=== PATIENT | male | born 1985 | race African-American/Black ===

== ENCOUNTER 2021-03-17 11:13 | Inpatient (IN) | payer OTHER ==
[~2021-03-17] VITALS: Ht 175.3 cm; Wt 81.8 kg
[2021-03-17] MEDS ORDERED: MELA3TAB30 PO (11:31)
[2021-03-17] MEDS ORDERED: PROP60CA PO (11:31)
[2021-03-17] MEDS ORDERED: BUPR-69 PO (11:31)
[2021-03-17 12:53] LABS: HEMATOCRIT 39.6 % (42.0-52.0); HEMOGLOBIN 14.4 g/dl (13.5-17.5); MEAN CORPUSCULAR HEMOGLOBIN 32.7 pg (27.0-33.0); MEAN CORPUSCULAR HGB CONC 36.4 g/dl (32.0-36.5); MEAN CORPUSCULAR VOLUME 89.8 fl (80.0-96.0); PLATELET COUNT, AUTOMATED 293 10^3/uL (150-450); RED BLOOD COUNT 4.41 10^6/uL (4.30-6.10); WHITE BLOOD COUNT 3.8 10^3/uL (4.0-10.0)
[2021-03-17 13:35] LABS: ACETAMINOPHEN LEVEL < 2.0 UG/ML (10.0-30.0); ALBUMIN 4.1 GM/DL (3.2-5.2); ALT/SGPT 41 U/L (12-78); BILIRUBIN,DIRECT 0.1 MG/DL (0.0-0.2); BILIRUBIN,TOTAL 0.6 MG/DL (0.2-1.0); BLOOD UREA NITROGEN 11 MG/DL (7-18); CALCIUM LEVEL 9.4 MG/DL (8.5-10.1); CARBON DIOXIDE LEVEL 28 MEQ/L (21-32); CHLORIDE LEVEL 105 MEQ/L (98-107); CREATININE FOR GFR 0.95 MG/DL (0.70-1.30); ETHYL ALCOHOL (ETHANOL) < 0.003 % (0.000-0.010); GLOMERULAR FILTRATION RATE > 60.0 (>60); GLUCOSE, FASTING 84 MG/DL (70-100); SALICYLATE LEVEL < 1.7 MG/DL (5.0-30.0); SODIUM LEVEL 139 MEQ/L (136-145); THYROID STIMULATING HORMONE 0.845 uIU/ML (0.358-3.740); TOTAL PROTEIN 7.6 GM/DL (6.4-8.2)
[2021-03-17 14:27] LABS: AMPHETAMINES LEVEL URINE NEGATIVE (NEGATIVE); BARBITURATES URINE NEGATIVE (NEGATIVE); BENZODIAZEPINES URINE NEGATIVE (NEGATIVE); CANNABINOIDS URINE NEGATIVE (NEGATIVE); COCAINE METABOLITE URINE NEGATIVE (NEGATIVE); METHADONE URINE NEGATIVE (NEGATIVE); OPIATES URINE NEGATIVE (NEGATIVE); PHENCYCLIDINE URINE NEGATIVE (NEGATIVE)
[2021-03-17 15:33] LABS: RSV AMPLIFICATION NEGATIVE (NEGATIVE)
[2021-03-17] MEDS ORDERED: PROP40TA62 PO (15:59)
[2021-03-17] MEDS ORDERED: BUPR100T3 PO (15:59)
[2021-03-17] MEDS ORDERED: HOME MED LIST COMPLETE! XX SCH (16:00)
[2021-03-17] MEDS ORDERED: MAALOX 30 ML SUSP *UDC PO PRN (18:30)
[2021-03-17] MEDS ORDERED: MOM 30ML SUSPENSION UDC PO PRN (18:30)
[2021-03-17] MEDS ORDERED: NICOTINE 21MG/24HR 1 EA TRANSDERMAL TD PRN (18:30)
[2021-03-17] MEDS ORDERED: OLANZapine ORAL DISINTEGRATING TAB 5MG PO PRN (18:30)
[2021-03-17] MEDS ORDERED: traZODone 50 MG TAB PO PRN (18:30)
--- OUTSIDE RECORDS SUMMARY | 2021-03-17 18:49 | CCD ---
Author Author [facility] Address Unknown Phone Unavailable Support Name Relationship Address Phone [facility] Next Of Kin [address] [place] [address] Unavailable ZEYAD THAKUR Next Of Kin [id number] [place] [address] Re-disclosure Warning The records that you are about to access may contain information from federally-assisted alcohol or drug abuse programs. If such information is present, then the following federally mandated warning applies: This information has been disclosed to you from records protected by federal confidentiality rules (42 CFR part 2). The federal rules prohibit you from making any further disclosure of this information unless further disclosure is expressly permitted by the written consent of the person to whom it pertains or as otherwise permitted by 42 CFR part 2. A general authorization for the release of medical or other information is NOT sufficient for this purpose. The Federal rules restrict any use of the information to criminally investigate or prosecute any alcohol or drug abuse patient.The records that you are about to access may contain highly sensitive health information, the redisclosure of which is protected by Article 27-F of the [facility] Public Health law. If you continue you may have access to information: Regarding HIV / AIDS; Provided by facilities licensed or operated by the [facility] Office of Mental Health; or Provided by the [facility] Office for People With Developmental Disabilities. If such information is present, then the following [facility] mandated warning applies: This information has been disclosed to you from confidential records which are protected by state law. State law prohibits you from making any further disclosure of this information without the specific written consent of the person to whom it pertains, or as otherwise permitted by law. Any unauthorized further disclosure in violation of state law may result in a fine or mcfp sentence or both. A general authorization for the release of medical or other information is NOT sufficient authorization for further disc losure. Medications No Information Insurance Providers Payer name Policy type / Coverage type Policy ID Covered constitution party ID Covered constitution party's relationship to castillo Policy Castillo Plan Information [facility] [id number] Problems, Conditions, and Diagnoses No Information Surgeries/Procedures No Information Results No Information Social History No Information
[2021-03-18] MEDS ORDERED: METAL LOCK LOOP XX ONE (02:05)
[2021-03-18 03:01] VITALS: BP 132/87
--- NOTE | 2021-03-18 13:34 | MHHPEPDOC ---
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 PT is from [facility] and he enlisted as it was his life long dream. PT has supportive friends and family in [facility] but not here at [facility] except for his of 13 years. They share 4 children that range in ages from 6 months to 10 years. 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 PT feels that his emotional state changed after going to [facility] and he now suffers from poor sleep, anger issues and depression. He was stationed in [place] 2019 and he found the experience "ok" but that is when he realized something was wrong as he was having nightmares and only sleeping 2-3 hours. When PT came to [facility] in February he enrolled at the [facility]. Today PT was a walk in as over the weekend he was struggling with depression as two of his friends in [facility] have in a two week period- one from an ulcer and one from lung cancer. PT began to worry about his own health as a result but then decided that life is not worth living so it wouldnt bother him if his health became terminal. EMS was called to bring PT to ED. PT denies SI prior to last Wednesday 03/14 when [place] and thought "What if I jump in". 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 He has not acted on the thoughts due to realizing the pain it would cause his family. PT states he has had AH since return from [place] but typically the AH are not clear and he disregarded them until recently. PT does not wish to be admitted but is tolerant with the process. Patient is a 35 -year-old , , undomiciled male, who presents with his first psychiatric admission after reporting suicidal thoughts and worsening ah since 03/14/21. Patient states that prior to 03/14/21, he has never had any suicidal thoughts. However, he states he has heard voices about 2-3 times per week beginning in 2019 after his deployment to [place]. He states that he was unsure if they were auditory hallucinations or just his own thoughts. On 03/14/21, patient reported he was changed from cymbalta to bupropion and since then, he has had command ah that suggest patient do risky behaviors, such as jump off a helicopter when he was at work or drive into the other yenifer of traffic, along with passive SI, denies active si, has not been thinking of a plan and has no intent of acting on suicidal thoughts. Patient stated he went into [facility] yesterday and told his provider how he was feeling, who suggested that patient come to to the emergency room for an evaluation. Since coming to the emergency room, Hossein states he hasn't received the bupropion and denies si/hi/ah/vh, states he feels "normal." Psychiatric Review of Systems Depression (2 or more weeks): depressed mood, anhedonia, feelings of excess/guilt, feelings of worthlesness, decreased energy, difficulty concentrating, suicidal thoughts (describes as passive) Luciana (4 or more days of): denies Psychosis: auditory hallucination, visual hallucination ("shadows"), paranoia PTSD: history of trauma, nightmares and flashbacks, intrusive memories, hypervigilance, avoidance of triggers, mood fluctuations Anxiety: situational anxiety, stressor related anxiety Anxiety/ 6 months or more of: restlessness, keyed up, easily fatigued, difficulty concentrating, muscle tension Past Psychiatric History Previous Psychiatric Diagnosis: "they never told me my diagnosis Previous Psychiatric Admissions: denies Suicide Attempts: denies. Psychiatric Follow[facility] Psychiatric medications: hx zoloft - experienced numbness in jaw cymbalta- experienced dizziness bupropion - current Past Medical History Medical Problems denies sleep apnea Head Injury: Yes Seizures: No Hospitalizations: No Surgeries: Yes (hemmorrhoids) Family Medical/Psychiatric HX Medical Problems denies Psychiatric Disorders: No Addiction: No Suicide Attemps/Completions: No Addiction History alcohol (occassionally ) Social History Childhood: Patient reported he grew up [place] with 3 brothers, 2 sisters with mother and father. He states he came to [place] in [place] with his immediate family, then decided to join the Abuse/Trauma: 1 deployment to [facility] (several attacks on post) Current Living Situation: currently lives with and children on post (4 kids) Education: Patient stated he graduated high school, graduated in business management Employment: [place] [employer] - enjoys job Social Support: patient's is supportive, has a good relationship. Legal: denies Marital: with 4 kids Mental Status Examination General Appearance: well groomed, appears stated age Build: average Demeanor: average Eye Contact: average Activity: average Behavior: cooperative Speech: clear, reg/rate,rhythm,volume Mood: depressed Affect: appropriate, congruent Thought Process: logical/linear Thought Content (Delusions): none reported, other (denies si/hi) Thought Content (Other): none reported Thought Content (Aggressive): none reported Perception (Hallucinations): auditory, visual (shadows at work) Perception (Other): none reported Cognition (Impairment of): none reported Cognition(Intelligence Est.): average Oriented: Awake, Alert, Oriented times three Insight: fair Judgment: Fair Psychosis: Psychotic Perceptions (reports +ah) Diagnoses PTSD major depressive disorder, moderate-severe, recurrent R/o MDD with psychotic features adjustment disorder A-FIB/CHADSVASC A-FIB History Current/History of A-Fib/PAF?: No Current PO Anticoag Therapy: No Assessment Hossein was receptive to meeting for the interview. He did test positive for Covid 19 so was placed on isolation precautions per infection control policy. In today's interview, patient states that he has felt depressed, beginning in 2019 after he returned from his deployment, where he witnessed a lot of trauma from "attacks on our base." He stated he thought he had +ah starting in 2019 but is unsure if it was ah or his own thoughts. He states the suspected ah would happen about 2-3 times a week. He states he has been on zoloft before but that he had numbness in his jaw from it, then was changed to cymbalta, which he tolerated for about 4 months but then began having dizziness from it. He reported on 03/14 his provider changed him to bupropion and since then he has had increasing ah, command that suggest he engage in risky behaviors to harm himself. Patient states since stopping the bupropion, he has not experienced an y ah, denies si/hi and cfs on the unit. He is agreeable to changing medications . Initial Treatment Plan 1. Patient was admitted on a [9.39] status. 2. Complete history was obtained. 3. With patients permission, family will be contacted and database will be expanded. 4. Patients medication regimen will be reviewed and changed accordingly. 5. Patient will be provided with protected environment. 6. Patient will be treated with individual, group, and milieu therapies. 7. Patient will receive supportive psych-education. 8. Discharge planning will commence immediately. 9. Outpatient follow-up treatment will be strongly recommended. 10. The initial treatment plan will focus initially on: * Depression. * Risk for suicide. ESTIMATED LENGTH OF STAY: 3-5 DAYS. TIME SPENT COUNSELING AND COORDINATING INITIAL CARE: [address] of head due to abrupt onset of command ah d/c bupropion start prozac 20 mg po daily continue home medications N/A-No Antipsychotics Vital Signs Vital Signs Date Time Temp Pulse Resp B/P (MAP) Pulse Ox O2 Delivery O2 Flow Rate FiO2 03/18/21 03:01 97.2 55 16 132/87 (102) 99 Room Air Laboratory Data 24H Labs Laboratory Tests 2 03/17/21 14:32: Coronavirus (COVID-19)(PCR) POSITIVEA, Influenza Type A (RT-PCR) NEGATIVE, Influenza Type B (RT-PCR) NEGATIVE, Respiratory Syncytial Virus (PCR) NEGATIVE Medications Scheduled Bupropion Hcl (Bupropion HCl Sr) 100 Mg Tab.sr.12h, 100 MG PO BID, (Reported) Melatonin (Melatonin) 3 Mg Tablet, 3 MG PO QHS, (Reported) Propranolol HCl (Propranolol HCl) 40 Mg Tablet, 40 MG PO QHS, (Reported) Allergies Coded Allergies: tuberculin, purified protein deriva (Verified Allergy, Unknown, 03/17/21) "always tests positive" ARJUN GILBERT, [facility] Mar 18, 2021 13:34
--- NOTE | 2021-03-18 15:14 | CR.PDOC ---
General Date of Consultation: Mar 18, 2021 Attending Physician: Yovana Segura MD Consultation REASON FOR CONSULTATION/CHIEF COMPLAINT: Medical H&P HISTORY OF PRESENT ILLNESS: Patient is a 35-year-old male with past medical history of anxiety, depression, questionable PTSD who presented to [facility] emergency room with a complaint of suicidal ideation, hearing voices. The patient states he has been hearing voices and has been battling with depression for over a year, follows with outpatient behavioral health on . He has been tried on several medications, most recent medication change was this past where he was switched to bupropion. He states he felt as though his auditory hallucinations increased, they were encouraging him to participate in "risky behavior". The patient states he has several stressors as outpatient including his workplace. He also admits to increased hopelessness, helplessness, decreased pleasure in things that normally bring him nathan, suicidal ideations without plan. He denies visual hallucinations or intent to harm anyone else. The patient was brought to the hospital for further evaluation on 03/17/2021. The patient tested positive for COVID-19. He denied chest pains, shortness of breath, fevers, chills, nausea, abdominal pain, loss of taste or smell, diarrhea. Medicine was consulted to evaluate. REVIEW OF SYSTEMS: CONSTITUTIONAL: Denies lack of energy, unexplained weight gain or weight loss, loss of appetite, fever, night sweats EYES: Denies eye drainage, eye pain, visual changes, dry/irritated eye EARS, NOSE, MOUTH, THROAT: Denies difficulty hearing, ringing in ears, mouth sores, loose teeth, sore throat, facial numbness or pain NECK: Denies swollen glands CARDIOVASCULAR: Denies irregular heartbeat, racing heart, chest pains, swelling of feet or legs, pain in legs with walking RESPIRATORY: Denies shortness of breath, night sweats, wheezing, sputum production, oxygen at home, coughing up blood, cough lasting > 1 month GASTROINTESTINAL: Denies abdominal pain, constipation, bloody stool, diarrhea, heartburn, nausea, vomiting GENITOURINARY: Denies painful urination, bloody urine, frequent urination, urgency, leaking urine, impotence MUSCULOSKELETAL: Denies joint pain, muscle pain, leg swelling INTEGUMENTARY: Denies rash, itching, new skin lesion, change in existing skin lesion, hair loss or increase, breast changes. NEUROLOGICAL: Denies headaches, dizziness, difficulty walking, numbness or tingling PAST MEDICAL HISTORY: Anxiety Depression Questionable PTSD PAST SURGICAL HISTORY: Hemorrhoid surgery FAMILY HISTORY: No significant family history SOCIAL HISTORY: Denies smoking, alcohol or drug use. Lives locally with his . He is active duty ALLERGIES: Please see below. HOME MEDICATIONS: Please see below. PHYSICAL EXAMINATION: VS: Stable, see below CONSTITUTIONAL: No acute distress, resting comfortably, AAO x 3 EYES: PERRLA, EOM intact HENT, MOUTH: Normocephalic, atraumatic, moist mucous membranes, NECK: SUPPLE, no JVD, no lymphadenopathy, no carotid bruit CV: Regular rate and rhythm, S1S2 normal, no murmurs/rubs/gallops RESPIRATORY: Clear to auscultation bilaterally, no rales/rhonchi/wheezes GI: BS positive in 4 quadrants, soft, nontender, nondistended, no rebound or guarding, no organomegaly : Deferred MUSCULOSKELETAL: Normal ROM. No cyanosis, clubbing, swelling, joint deformity, extremity edema INTEGUMENTARY: Intact, no rashes, no lesions, no erythema NEUROLOGIC: Cranial Nerves II-XII are intact, no focal deficits PSYCHIATRIC: Mood and affect are normal LABORATORY DATA: Please see below IMAGING: None ASSESSMENT: 35-year-old male admitted for unspecified depressive disorder, suicidal ideation. PLAN: Unspecified depressive disorder, suicidal ideation -Recent medication change outpatient -Plan per psychiatry team Anxiety/depression/questionable PTSD -Plan per psychiatry team COVID-19 infection -Denies all symptoms above -Saturating well on room air -Continue with precautions, monitor for change DISPOSITION: Thank you kindly for this consult. At this time I will sign off. If we are needed again please do not hesitate to reconsult. Vital Signs/I&O Vital Signs Date Time Temp Pulse Resp B/P (MAP) Pulse Ox O2 Delivery O2 Flow Rate FiO2 03/18/21 03:01 97.2 55 16 132/87 (102) 99 Room Air Allergies Coded Allergies: tuberculin, purified protein deriva (Verified Allergy, Unknown, 03/17/21) "always tests positive" Home Medications Scheduled Bupropion Hcl (Bupropion HCl Sr) 100 Mg Tab.sr.12h, 100 MG PO BID, (Reported) Melatonin (Melatonin) 3 Mg Tablet, 3 MG PO QHS, (Reported) Propranolol HCl (Propranolol HCl) 40 Mg Tablet, 40 MG PO QHS, (Reported) Yovana Segura MD Mar 18, 2021 15:14
[2021-03-18] MEDS: FLUoxetine 20 MG CAP PO SCH (16:36)
[2021-03-18 20:37] VITALS: BP 136/86
[2021-03-18] MEDS: PROPRANOLOL 20 MG TAB PO SCH (20:39)
[2021-03-18] MEDS: ACETAMINOPHEN TAB 650MG DOSE (2X325MG) PO PRN (20:40)
[2021-03-18] MEDS ORDERED: risperiDONE 0.5 MG TAB PO SCH (21:00)
--- NOTE | 2021-03-18 21:29 | REPVR ---
PROCEDURE INFORMATION: Exam: CT Head without Contrast Exam date and time: 03/18/21 (8:48pm) Age: 35 years old Clinical indication: Headache TECHNIQUE: Imaging protocol: Computed tomography of the head without contrast Radiation optimization: All CT scans at this facility use at least one of these dose optimization techniques: automated exposure control; mA and/or kV adjustment per patient size (includes targeted exams where dose is matched to clinical indication); or iterative reconstruction. COMPARISON: No relevant prior studies available FINDINGS: Brain: Unremarkable. No acute hemorrhage. Unremarkable white matter. No mass effect. Cerebral ventricles: No ventriculomegaly. Paranasal sinuses: Visualized sinuses are unremarkable. No air-fluid levels. Mastoid air cells: Visualized mastoid air cells are well aerated. Bones/joints: Unremarkable. No acute fracture. Soft tissues: Unremarkable. IMPRESSION: No acute intracranial pathology. Electronically signed by: Lana Goodman On 03/18/2021 21:28:50 PM
[2021-03-19 06:22] VITALS: BP 123/65
[2021-03-19] MEDS: FLUoxetine 20 MG CAP PO SCH (09:17)
[2021-03-19 16:53] VITALS: BP 146/63
[2021-03-19 19:51] VITALS: BP 127/78
[2021-03-19] MEDS: PROPRANOLOL 20 MG TAB PO SCH (20:00)
[2021-03-19] MEDS: OLANZapine 5 MG TAB PO SCH (20:00)
[2021-03-19] MEDS ORDERED: OLANZapine 5 MG TAB PO SCH (21:00)
[2021-03-19] MEDS ORDERED: QUEtiapine FUMARATE 25 MG TAB PO SCH (21:00)
--- NOTE | 2021-03-20 00:52 | ECGEPIP ---
[facility] Test Date: 2021-03-19 Pat Name: AWILDA HAMM Department: Room: [place] [address] Gender: Male Codifier: JULIA : [id number] Requested By: ARJUN Montoya PMHNP Order Number: [id number] Reading MD: Hammad Brown Measurements Intervals [place] Rate: 56 P: 7 AK: 196 QRS: 31 QRSD: 98 T: -2 QT: 372 QTc: 358 Interpretive Statements Sinus bradycardia with sinus arrhythmia No prior tracing in the system Electronically Signed on 03-20-2021 0:51:44 EST by Hammad Brown
[2021-03-20] MEDS: ESCITALOPRAM OXALATE 10 MG TAB (LEXAPRO) PO SCH (09:05)
--- NOTE | 2021-03-20 10:10 | MHIPNPDOC ---
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 PT is from [facility] and he enlisted as it was his life long dream. PT has supportive friends and family in [facility] but not here at [facility] except for his of 13 years. They share 4 children that range in ages from 6 months to 10 years. 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 PT feels that his emotional state changed after going to [facility] and he now suffers from poor sleep, anger issues and depression. He was stationed in [place] 2019 and he found the experience "ok" but that is when he realized something was wrong as he was having nightmares and only sleeping 2-3 hours. When PT came to [facility] in February he enrolled at the [facility]. Today PT was a walk in as over the weekend he was struggling with depression as two of his friends in [facility] have in a two week period-one from an ulcer and one from lung cancer. PT began to worry about his own health as a result but then decided that life is not worth living so it wouldnt bother him if his health became terminal. EMS was called to bring PT to ED. PT denies SI prior to last Wednesday 03/14 when he sat by the river and thought "What if I jump in". 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 He has not acted on the thoughts due to realizing the pain it would cause his family. PT states he has had AH since return from [place] but typically the AH are not clear and he disregarded them until recently. PT does not wish to be admitted but is tolerant with the process. Patient is a 35 -year-old , , undomiciled male, who presents with his first psychiatric admission after reporting suicidal thoughts and worsening ah since 03/14/21. Patient states that prior to 03/14/21, he has never had any suicidal thoughts. However, he states he has heard voices about 2-3 times per week beginning in 2019 after his deployment to [place]. He states that he was unsure if they were auditory hallucinations or just his own thoughts. On 03/14/21, patient reported he was changed from cymbalta to bupropion and since then, he has had command ah that suggest patient do risky behaviors, such as jump off a helicopter when he was at work or drive into the other yenifer of traffic, along with passive SI, denies active si, has not been thinking of a plan and has no intent of acting on suicidal thoughts. Patient stated he went into [facility] yesterday and told his provider how he was feeling, who suggested that patient come to to the emergency room for an evaluation. Since coming to the emergency room, Hossein states he hasn't received the bupropion and denies si/hi/ah/vh, states he feels "normal." VITAL SIGNS: See below. NEW TEST RESULTS: CT of head - neagative CURRENT MEDICATIONS: See below. Mental Status Examination General Appearance: well groomed, appears stated age Build: average Demeanor: average Eye Contact: average Activity: average Behavior: cooperative Speech: clear, reg/rate,rhythm,volume Mood: depressed Affect: appropriate, congruent Thought Process: logical/linear Thought Content (Delusions): none reported, other (denies si/hi) Thought Content (Other): none reported Thought Content (Aggressive): none reported Perception (Hallucinations): auditory, visual (shadows at work) Perception (Other): none reported Cognition (Impairment of): none reported Cognition(Intelligence Est.): average Oriented: Awake, Alert, Oriented times three Insight: fair Judgment: Fair Psychosis: Psychotic Perceptions (reports +ah) DIAGNOSES: PTSD major depressive disorder, moderate-severe, recurrent R/o MDD with psychotic features adjustment disorder ASSESSMENT: In today's session Hossein states he is doing "very good." he denies si, states that last time he had suicidal thoughts was last Wednesday. He does report "a little anxiety today." Hossein reports that this morning he heard a sound of someone running to the bathroom that called his name. He states that when he went to the bathroom and turned on the lights, no one was there. He stated that the ah comes unexpectedly that he feels scared and like he is "being haunted by little ghosts." He reports that least week 2 friends and since then, he feels like there is no point in making future plans because he feels that if his friends , he is going to too. He states he has no energy and that he comes home from work on Wednesday and goes to his bedroom, where he lays in bed all weekend until Wednesday when he has to go back to work, does not even come out of room for meals as he brings snacks to the bedroom. He also states he feels guilty, makes plans with his children on the weekends when he is off then when the day comes the kids ask if they are still going to do the things he told them and he changes his mind, states he doesn't fee like going. Hossein is receptive to starting an antipsychotic for the ah. He was educated on risks benefits an potential side effects. MANAGEMENT PLAN: continue all medications start olanzapine 5 mg po qhs TIME SPENT: 30 minutes. Vital Signs Vital Signs Date Time Temp Pulse Resp B/P (MAP) Pulse Ox O2 Delivery O2 Flow Rate FiO2 03/19/21 06:22 98.6 68 16 123/65 (84) 100 Room Air Current Medications Current Medications Medications (Trade) Dose Ordered Sig/Beatriz Route PRN Reason Start Time Stop Time Status Last Admin Dose Admin Acetaminophen (Tylenol Tab) 650 mg Q6HP PRN PO HEADACHE or MILD DISCOMFORT 03/17/21 18:30 03/18/21 20:40 Al Hydrox/Mg Hydrox/Simethicone (Mylanta) 30 ml Q4HP PRN PO HEARTBURN/INDIGESTION 03/17/21 18:30 Fluoxetine HCl (PROzac) 20 mg DAILY PO 03/18/21 09:00 03/19/21 09:17 Home Med (Home Med List Complete!) ASDIRECTED XX 03/17/21 16:00 03/17/21 16:02 DC Magnesium Hydroxide (Milk Of Magnesia) 30 ml DAILYPRN PRN PO CONSTIPATION 03/17/21 18:30 Nicotine (Nicoderm Cq 21mg) 1 patch DAILY PRN TD NICOTINE WITHDRAWAL 03/17/21 18:30 Olanzapine (ZyPREXA ZYDIS) 5 mg Q6HP PRN PO AGITATION/ANXIETY 03/17/21 18:30 Propranolol HCl (Inderal) 40 mg QHS PO 03/18/21 21:00 03/18/21 20:39 Risperidone (RisperDAL) 0.5 mg BID PO 03/18/21 21:00 03/18/21 14:20 DC Trazodone HCl (Desyrel) 50 mg QHSP PRN PO INSOMNIA 03/17/21 18:30 03/18/21 20:39 Allergies Coded Allergies: tuberculin, purified protein deriva (Verified Allergy, Unknown, 03/17/21) "always tests positive" ARJUN GILBERT, [facility] Mar 19, 2021 11:34
--- NOTE | 2021-03-20 10:56 | MHIPNPDOC ---
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 PT is from [facility] and he enlisted as it was his life long dream. PT has supportive friends and family in [facility] but not here at [facility] except for his of 13 years. They share 4 children that range in ages from 6 months to 10 years. 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 PT feels that his emotional state changed after going to [facility] and he now suffers from poor sleep, anger issues and depression. He was stationed in [place] 2019 and he found the experience "ok" but that is when he realized something was wrong as he was having nightmares and only sleeping 2-3 hours. When PT came to [facility] in February he enrolled at the [facility]. Today PT was a walk in as over the weekend he was struggling with depression as two of his friends in [facility] have in a two week period- one from an ulcer and one from lung cancer. PT began to worry about his own health as a result but then decided that life is not worth living so it wouldnt bother him if his health became terminal. EMS was called to bring PT to ED. PT denies SI prior to last Wednesday 03/14 when he sat by the river and thought "What if I jump in". 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 He has not acted on the thoughts due to realizing the pain it would cause his family. PT states he has had AH since return from [place] but typically the AH are not clear and he disregarded them until recently. PT does not wish to be admitted but is tolerant with the process. Patient is a 35 -year-old , , undomiciled male, who presents with his first psychiatric admission after reporting suicidal thoughts and worsening ah since 03/14/21. Patient states that prior to 03/14/21, he has never had any suicidal thoughts. However, he states he has heard voices about 2-3 times per week beginning in 2019 after his deployment to [place]. He states that he was unsure if they were auditory hallucinations or just his own thoughts. On 03/14/21, patient reported he was changed from cymbalta to bupro pion and since then, he has had command ah that suggest patient do risky behaviors, such as jump off a helicopter when he was at work or drive into the other yenifer of traffic, along with passive SI, denies active si, has not been thinking of a plan and has no intent of acting on suicidal thoughts. Patient stated he went into [facility] yesterday and told his provider how he was feeling, who suggested that patient come to to the emergency room for an evaluation. Since coming to the emergency room, Hossein states he hasn't received the bupropion and denies si/hi/ah/vh, states he feels "normal." VITAL SIGNS: See below. NEW TEST RESULTS: CT of head - negative CURRENT MEDICATIONS: See below. Mental Status Examination General Appearance: well groomed, appears stated age Build: average Demeanor: average Eye Contact: average Activity: average Behavior: cooperative Speech: clear, reg/rate,rhythm,volume Mood: depressed Affect: appropriate, congruent, flat Thought Process: logical/linear Thought Content (Delusions): none reported, other (denies si/hi) Thought Content (Other): none reported Thought Content (Aggressive): none reported Perception (Hallucinations): denies Perception (Other): none reported Cognition (Impairment of): none reported Cognition(Intelligence Est.): average Oriented: Awake, Alert, Oriented times three Insight: fair Judgment: Fair Psychosis: denies DIAGNOSES: PTSD major depressive disorder, moderate-severe, recurrent R/o MDD with psychotic features adjustment disorder ASSESSMENT: In today's session Hossein states he is doing "very good." He denies si, continues to report that last time he had suicidal thoughts was 03/16/21. He denies any anxiety today as well. He is really hoping for discharge, discussed with patient that tw would like to continue to observe for any psychotic thoughts. Yesterday, Hossein reported he felt his heart was racing and EKG shows sinus bradycardia, Hossein's pulse has been trending low. Due to c/o of palpiatations and potential for drug interactions between propranolol and prozac, patient agreed to changing to lexapro. Patient states that when he returned home from [facility] is when his mood changed and depression/anxiety began. 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 He states before his deployment he used to enjoy the and since he returned, he no longer likes it. He also states that the voices began when he returned from [facility] but that they turned into command ah when on 03/14. Hossein states he does not recognize the voices that command him to hurt himself. IT appears mood changes are directly related to chronic PTSD Release signed for , Hossein. She stated that she has talked to Hossein since he has been admitted and feels he is "much better than when he came in to the hospital." states that patient was never depressed before going to [facility], reports he was a good, loving and father before. However, she states that his mood has changed since he returned from [facility] but doesn't talk about it. states that he usually comes home from work and isolates himself in his bedroom, often forgetting to eat. At this time, she denies any concerns for him regarding his discharge, states she will be home with him and can monitor him for worsening depression and si. educated on sings of decompensation including increased irritability, poor sleep, suicidal thoughts, and ah verbalizes understanding. MANAGEMENT PLAN: d/c prozac 20 mg po daily start lexapro 10 mg po daily continue olanzapine 5 mg po qhs collaborate with mechanical planner on possible residential treatment or IOP for PTSD likely d/c 03/24/21 TIME SPENT: 30 minutes. Vital Signs Vital Signs Date Time Temp Pulse Resp B/P (MAP) Pulse Ox O2 Delivery O2 Flow Rate FiO2 03/19/21 20:00 64 127/78 03/19/21 19:51 98.2 16 100 Room Air Current Medications Current Medications Medications (Trade) Dose Ordered Sig/Beatriz Route PRN Reason Start Time Stop Time Status Last Admin Dose Admin Acetaminophen (Tylenol Tab) 650 mg Q6HP PRN PO HEADACHE or MILD DISCOMFORT 03/17/21 18:30 03/18/21 20:40 Al Hydrox/Mg Hydrox/Simethicone (Mylanta) 30 ml Q4HP PRN PO HEARTBURN/INDIGESTION 03/17/21 18:30 Escitalopram Oxalate (Lexapro) 10 mg DAILY PO 03/20/21 09:00 UNV Fluoxetine HCl (PROzac) 20 mg DAILY PO 03/18/21 09:00 03/20/21 07:37 DC 03/19/21 09:17 Home Med (Home Med List Complete!) ASDIRECTED XX 03/17/21 16:00 03/17/21 16:02 DC Magnesium Hydroxide (Milk Of Magnesia) 30 ml DAILYPRN PRN PO CONSTIPATION 03/17/21 18:30 Nicotine (Nicoderm Cq 21mg) 1 patch DAILY PRN TD NICOTINE WITHDRAWAL 03/17/21 18:30 Olanzapine (ZyPREXA ZYDIS) 5 mg Q6HP PRN PO AGITATION/ANXIETY 03/17/21 18:30 Olanzapine (ZyPREXA) 5 mg QHS PO 03/19/21 21:00 03/19/21 20:00 Olanzapine (ZyPREXA) 5 mg QHS PO 03/19/21 21:00 Cancel Propranolol HCl (Inderal) 40 mg QHS PO 03/18/21 21:00 03/19/21 20:00 Quetiapine Fumarate (SEROquel) 25 mg QHS PO 03/19/21 21:00 Cancel Risperidone (RisperDAL) 0.5 mg BID PO 03/18/21 21:00 03/18/21 14:20 DC Trazodone HCl (Desyrel) 50 mg QHSP PRN PO INSOMNIA 03/17/21 18:30 03/19/21 12:56 DC 03/18/21 20:39 Allergies Coded Allergies: tuberculin, purified protein deriva (Verified Allergy, Unknown, 03/17/21) "always tests positive" [facility]UN GILBERT, [facility] Mar 20, 2021 07:45
[2021-03-20 13:06] LABS: CHOLESTEROL RISK RATIO 5.243 (<5)
[2021-03-20 18:00] VITALS: BP 140/90
[2021-03-20] MEDS: OLANZapine 5 MG TAB PO SCH (19:57)
[2021-03-20 19:58] VITALS: BP 132/63
[2021-03-20] MEDS: PROPRANOLOL 20 MG TAB PO SCH (19:58)
[2021-03-21 06:20] VITALS: BP 123/73
[2021-03-21] MEDS: ESCITALOPRAM OXALATE 10 MG TAB (LEXAPRO) PO SCH (08:00)
--- NOTE | 2021-03-21 11:49 | MHIPNPDOC ---
[facility] Progress Note Progress Note DATE OF SERVICE: 03/21/21 PT is AD 4 years with an ETS of 2022. PT is from [facility] and he enlisted as it was his life long dream. PT has supportive friends and family in [facility] but not here at [facility] except for his of 13 years. They share 4 children that range in ages from 6 months to 10 years. 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 PT feels that his emotional state changed after going to [facility] and he now suffers from poor sleep, anger issues and depression. He was stationed in [place] 2019 and he found the experience "ok" but that is when he realized something was wrong as he was having nightmares and only sleeping 2-3 hours. When PT came to [facility] in February he enrolled at the [facility]. Today PT was a walk in as over the weekend he was struggling with depression as two of his friends in [facility] have in a two week period- one from an ulcer and one from lung cancer. PT began to worry about his own health as a result but then decided that life is not worth living so it wouldnt bother him if his health became terminal. EMS was called to bring PT to ED. PT denies SI prior to last Wednesday 03/14 when he sat by the river and thought "What if I jump in". 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 He has not acted on the thoughts due to realizing the pain it would cause his family. PT states he has had AH since return from [place] but typically the AH are not clear and he disregarded them until recently. PT does not wish to be admitted but is tolerant with the process. Patient is a 35 -year-old , , undomiciled male, who presents with his first psychiatric admission after reporting suicidal thoughts and worsening ah since 03/14/21. Patient states that prior to 03/14/21, he has never had any suicidal thoughts. However, he states he has heard voices about 2-3 times per week beginning in 2019 after his deployment to [place]. He states that he was unsure if they were auditory hallucinations or just his own thoughts. On 03/14/21, patient reported he was changed from cymbalta to bupro pion and since then, he has had command ah that suggest patient do risky behaviors, such as jump off a helicopter when he was at work or drive into the other yen[place] of traffic, along with passive SI, denies active si, has not been thinking of a plan and has no intent of acting on suicidal thoughts. Patient stated he went into [facility] yesterday and told his provider how he was feeling, who suggested that patient come to to the emergency room for an evaluation. Since coming to the emergency room, Hossein states he hasn't received the bupropion and denies si/hi/ah/vh, states he feels "normal." VITAL SIGNS: See below. NEW TEST RESULTS: lipid panel - hospitalist consulted CURRENT MEDICATIONS: See below. Mental Status Examination General Appearance: well groomed, appears stated age Build: average Demeanor: average, reserved Eye Contact: average Activity: average Behavior: cooperative Speech: clear, reg/rate,rhythm,volume Mood: depressed Affect: appropriate, congruent, flat Thought Process: logical/linear Thought Content (Delusions): none reported, other (denies si/hi) Thought Content (Other): none reported Thought Content (Aggressive): none reported Perception (Hallucinations): denies Perception (Other): none reported Cognition (Impairment of): none reported Cognition(Intelligence Est.): average Oriented: Awake, Alert, Oriented times three Insight: fair Judgment: Fair Psychosis: denies DIAGNOSES: PTSD major depressive disorder, moderate-severe, recurrent R/o MDD with psychotic features adjustment disorder ASSESSMENT: In today's session Hossein states he is doing "very good." He denies si, continues to report that last time he had suicidal thoughts was 03/16/21. He denies ah/vh. Hossein states that he is tolerating medications well, denies any concerns at this time. presented a few options for intensive ptsd treatment including [facility] and intensive IOP hear at [facility]. Hossein states he does not want to go to [facility] in [place] but that he is open to going to the intensive IOP at the [facility]. Patient continues to report his anxiety and depression are from his deployment. MANAGEMENT PLAN: d/c prozac 20 mg po daily start lexapro 10 mg po daily continue olanzapine 5 mg po qhs collaborate with data recovery planner on possible exterminator helper termite treatment or IOP for PTSD likely d/c 03/24/21 Vital Signs Vital Signs Date Time Temp Pulse Resp B/P (MAP) Pulse Ox O2 Delivery O2 Flow Rate FiO2 03/21/21 06:20 96.7 50 16 123/73 (90) 100 Room Air Laboratory Data 24H Labs Laboratory Tests 2 03/20/21 12:16: Triglycerides Level 394H, Total Cholesterol 215H, LDL Cholesterol 95, Non-HDL Cholesterol (LDL + VLDL) 174, Total HDL Cholesterol 41, Cholesterol/HDL Ratio 5.243H Current Medications Current Medications Medications (Trade) Dose Ordered Sig/Beatriz Route PRN Reason Start Time Stop Time Status Last Admin Dose Admin Acetaminophen (Tylenol Tab) 650 mg Q6HP PRN PO HEADACHE or MILD DISCOMFORT 03/17/21 18:30 03/18/21 20:40 Al Hydrox/Mg Hydrox/Simethicone (Mylanta) 30 ml Q4HP PRN PO HEARTBURN/INDIGESTION 03/17/21 18:30 Escitalopram Oxalate (Lexapro) 10 mg DAILY PO 03/20/21 09:00 03/21/21 08:00 Fluoxetine HCl (PROzac) 20 mg DAILY PO 03/18/21 09:00 03/20/21 07:37 DC 03/19/21 09:17 Home Med (Home Med List Complete!) ASDIRECTED XX 03/17/21 16:00 03/17/21 16:02 DC Magnesium Hydroxide (Milk Of Magnesia) 30 ml DAILYPRN PRN PO CONSTIPATION 03/17/21 18:30 Nicotine (Nicoderm Cq 21mg) 1 patch DAILY PRN TD NICOTINE WITHDRAWAL 03/17/21 18:30 Olanzapine (ZyPREXA ZYDIS) 5 mg Q6HP PRN PO AGITATION/ANXIETY 03/17/21 18:30 Olanzapine (ZyPREXA) 5 mg QHS PO 03/19/21 21:00 03/20/21 19:57 Olanzapine (ZyPREXA) 5 mg QHS PO 03/19/21 21:00 Cancel Propranolol HCl (Inderal) 40 mg QHS PO 03/18/21 21:00 03/20/21 19:58 Quetiapine Fumarate (SEROquel) 25 mg QHS PO 03/19/21 21:00 Cancel Risperidone (RisperDAL) 0.5 mg BID PO 03/18/21 21:00 03/18/21 14:20 DC Trazodone HCl (Desyrel) 50 mg QHSP PRN PO INSOMNIA 03/17/21 18:30 03/19/21 12:56 DC 03/18/21 20:39 Allergies Coded Allergies: tuberculin, purified protein deriva (Verified Allergy, Unknown, 03/17/21) "always tests positive" ARJUN GILBERT, [facility] Mar 21, 2021 11:48
[2021-03-21 18:37] VITALS: BP 147/72
[2021-03-21] MEDS: OLANZapine 5 MG TAB PO SCH (21:39)
[2021-03-21] MEDS: PROPRANOLOL 20 MG TAB PO SCH (21:59)
[2021-03-22 06:52] VITALS: BP 134/83
[2021-03-22] MEDS: ESCITALOPRAM OXALATE 10 MG TAB (LEXAPRO) PO SCH (08:50)
[2021-03-22] MEDS: OLANZapine 5 MG TAB PO SCH (20:40)
[2021-03-22] MEDS: PROPRANOLOL 20 MG TAB PO SCH (21:02)
--- NOTE | 2021-03-22 21:41 | MHIPNPDOC ---
[facility] Progress Note Progress Note DATE OF SERVICE: 03/22/21 PT is AD 4 years with an ETS of 2022. PT is from [facility] and he enlisted as it was his life long dream. PT has supportive friends and family in [facility] but not here at [facility] except for his of 13 years. They share 4 children that range in ages from 6 months to 10 years. 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 PT feels that his emotional state changed after going to [facility] and he now suffers from poor sleep, anger issues and depression. He was stationed in [place] 2019 and he found the experience "ok" but that is when he realized something was wrong as he was having nightmares and only sleeping 2-3 hours. When PT came to [facility] in February he enrolled at the [facility]. Today PT was a walk in as over the weekend he was struggling with depression as two of his friends in [facility] have in a two week period- one from an ulcer and one from lung cancer. PT began to worry about his own health as a result but then decided that life is not worth living so it wouldnt bother him if his health became terminal. EMS was called to bring PT to ED. PT denies SI prior to last Wednesday 03/14 when he sat by the river and thought "What if I jump in". 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 He has not acted on the thoughts due to realizing the pain it would cause his family. PT states he has had AH since return from [place] but typically the AH are not clear and he disregarded them until recently. PT does not wish to be admitted but is tolerant with the process. Patient is a 35 -year-old , , undomiciled male, who presents with his first psychiatric admission after reporting suicidal thoughts and worsening ah since 03/14/21. Patient states that prior to 03/14/21, he has never had any suicidal thoughts. However, he states he has heard voices about 2-3 times per week beginning in 2019 after his deployment to [place]. He states that he was unsure if they were auditory hallucinations or just his own thoughts. On 03/14/21, patient reported he was changed from cymbalta to bupro pion and since then, he has had command ah that suggest patient do risky behaviors, such as jump off a helicopter when he was at work or drive into the other yenifer of traffic, along with passive SI, denies active si, has not been thinking of a plan and has no intent of acting on suicidal thoughts. Patient stated he went into [facility] yesterday and told his provider how he was feeling, who suggested that patient come to to the emergency room for an evaluation. Since coming to the emergency room, Hossein states he hasn't received the bupropion and denies si/hi/ah/vh, states he feels "normal." INTERVAL HISTORY: Patient was asleep when I entered his room today, did not respond to his name being called several times. Per documentation he has been complaint with medications while on the unit. Remains on COVID isolation precautions. VITAL SIGNS: See below. NEW TEST RESULTS: lipid panel - hospitalist consulted CURRENT MEDICATIONS: See below. Mental Status Examination Asleep today, did not readily respond to his name being called. In no apparent medical distress. DIAGNOSES: PTSD major depressive disorder, moderate-severe, recurrent R/o MDD with psychotic features adjustment disorder ASSESSMENT: Asleep today, per nursing documentation appears compliant with medications and is trending toward improvement. Would recommend continuing with previously outlined plan by the primary team. MANAGEMENT PLAN: continue lexapro 10 mg po daily continue olanzapine 5 mg po qhs collaborate with logistics planner on possible exterminator treatment or IOP for PTSD likely d/c 03/24/21 Vital Signs Vital Signs Date Time Temp Pulse Resp B/P (MAP) Pulse Ox O2 Delivery O2 Flow Rate FiO2 03/22/21 21:02 59 128/89 03/22/21 06:52 97.3 14 100 Room Air Current Medications Current Medications Medications (Trade) Dose Ordered Sig/Beatriz Route PRN Reason Start Time Stop Time Status Last Admin Dose Admin Acetaminophen (Tylenol Tab) 650 mg Q6HP PRN PO HEADACHE or MILD DISCOMFORT 03/17/21 18:30 03/18/21 20:40 Al Hydrox/Mg Hydrox/Simethicone (Mylanta) 30 ml Q4HP PRN PO HEARTBURN/INDIGESTION 03/17/21 18:30 Escitalopram Oxalate (Lexapro) 10 mg DAILY PO 03/20/21 09:00 03/22/21 08:50 Fluoxetine HCl (PROzac) 20 mg DAILY PO 03/18/21 09:00 03/20/21 07:37 DC 03/19/21 09:17 Home Med (Home Med List Complete!) ASDIRECTED XX 03/17/21 16:00 03/17/21 16:02 DC Magnesium Hydroxide (Milk Of Magnesia) 30 ml DAILYPRN PRN PO CONSTIPATION 03/17/21 18:30 Nicotine (Nicoderm Cq 21mg) 1 patch DAILY PRN TD NICOTINE WITHDRAWAL 03/17/21 18:30 Olanzapine (ZyPREXA ZYDIS) 5 mg Q6HP PRN PO AGITATION/ANXIETY 03/17/21 18:30 Olanzapine (ZyPREXA) 5 mg QHS PO 03/19/21 21:00 03/22/21 20:40 Olanzapine (ZyPREXA) 5 mg QHS PO 03/19/21 21:00 Cancel Propranolol HCl (Inderal) 40 mg QHS PO 03/18/21 21:00 03/22/21 21:02 Quetiapine Fumarate (SEROquel) 25 mg QHS PO 03/19/21 21:00 Cancel Risperidone (RisperDAL) 0.5 mg BID PO 03/18/21 21:00 03/18/21 14:20 DC Trazodone HCl (Desyrel) 50 mg QHSP PRN PO INSOMNIA 03/17/21 18:30 03/19/21 12:56 DC 03/18/21 20:39 Allergies Coded Allergies: tuberculin, purified protein deriva (Verified Allergy, Unknown, 03/17/21) "always tests positive" DIOGO STORM MD Mar 22, 2021 21:41
[2021-03-23] MEDS: ACETAMINOPHEN TAB 650MG DOSE (2X325MG) PO PRN (06:31)
[2021-03-23 06:35] VITALS: BP 137/83
[2021-03-23] MEDS: ESCITALOPRAM OXALATE 10 MG TAB (LEXAPRO) PO SCH (09:00)
[2021-03-23 20:55] VITALS: BP 137/83
[2021-03-23] MEDS: PROPRANOLOL 20 MG TAB PO SCH (20:55)
[2021-03-23] MEDS: OLANZapine 5 MG TAB PO SCH (20:55)
[2021-03-24 06:36] VITALS: BP 127/88
[2021-03-24] MEDS: ESCITALOPRAM OXALATE 10 MG TAB (LEXAPRO) PO SCH (09:45)
[2021-03-24] MEDS ORDERED: LEXA1TAB PO (10:09)
[2021-03-24] MEDS ORDERED: OLAN1TAB16 PO (10:09)
--- NOTE | 2021-03-24 12:54 | MHDSPDOC ---
[facility] Discharge Summary Discharge Summary DATE OF ADMISSION: Mar 17, 2021 at 18:30 DATE OF DISCHARGE: Mar 24, 2021 at 1022 DISCHARGE DIAGNOSES: major depressive disorder, moderate-severe, recurrent R/o MDD with psychotic features adjustment disorder REASON FOR ADMISSION: PT is AD 4 years with an ETS of 2022. PT is from [facility] and he enlisted as it was his life long dream. PT has supportive friends and family in [facility] but not here at [facility] except for his of 13 years. They share 4 children that range in ages from 6 months to 10 years. 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 PT feels that his emotional state changed after going to [facility] and he now suffers from poor sleep, anger issues and depression. He was stationed in [place] 2019 and he found the experience "ok" but that is when he realized something was wrong as he was having nightmares and only sleeping 2-3 hours. When PT came [facility] he enrolled at the [facility]. Today PT was a walk in as over the weekend he was struggling with depression as two of his friends in [facility] have in a two week period-one from an ulcer and one from lung cancer. PT began to worry about his own health as a result but then decided that life is not worth living so it wouldnt bother him if his health became terminal. EMS was called to bring PT to ED. PT denies SI prior to last Wednesday 03/14 when he sat by the river and thought "What if I jump in". 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 He has not acted on the thoughts due to realizing the pain it would cause his family. PT states he has had AH since return from [place] but typically the AH are not clear and he disregarded them until recently. PT does not wish to be admitted but is tolerant with the process. Patient is a 35 -year-old , , undomiciled male, who presents with his first psychiatric admission after reporting suicidal thoughts and worsening ah since 03/14/21. Patient states that prior to 03/14/21, he has never had any suicidal thoughts. However, he states he has heard voices about 2-3 times per week beginning in 2019 after his deployment to [place]. He states that he was unsure if they were auditory hallucinations or just his own thoughts. On 03/14/21, patient reported he was changed from cymbalta to bupropion and since then, he has had command ah that suggest patient do risky behaviors, such as jump off a helicopter when he was at work or drive into the other yenifer of traffic, along with passive SI, denies active si, has not been thinking of a plan and has no intent of acting on suicidal thoughts. Patient stated he went into [facility] yesterday and told his provider how he was feeling, who suggested that patient come to to the emergency room for an evaluation. Since coming to the emergency room, Hossein states he hasn't received the bupropion and denies si/hi/ah/vh, states he feels "normal." CONSULTANTS INVOLVED: See hospitalist H&P TREATMENT AND PROGRESS ON THE UNIT: Patient was admitted to the [facility] on a 9.39 legal status was afforded the following treatment modalities: 1) Individual Therapy 2) Group Therapy 3) Medication Management 4) Milieu Therapy 5) Safe Environment HOSPITAL COURSE: Patient was admitted to [facility] on a 9.39 legal status from the e mergency room. Due to testing positive for Covid 19, patient was placed on isolation precautions per infection control precautions. He was started on lexapro 10 mg po daily and olanzapine 5 mg po qhs, as patient reported anxiety, depression and +ah. Pt found medications beneficial and tolerated them well. Mood, anxiety, and +ah improved with treatment. On day of discharge, pt. denied depression, anxiety, insomnia, SI/HI, hallucinations, delusions. Pt was discharged home with follow-up at [facility]. Pt felt safe for discharge. DISCHARGE ASSESSMENT: In today's interview, patient is alert and oriented, pt.s dress is appropriate. Hygiene and grooming is well-kempt. Smiles on approach and is pleasant and engaged in the interview. Denies depression and anxiety. Denies suicidal and homicidal ideation, planning or intent. Denies and is not observed with julito, psychotic symptoms of delusions, bizarre thinking, obsessions, paranoia, ruminations illogical thoughts, flight of ideas or having poor insight and judgement. Discussed patient's elevated triglycerides and encouraged patient to follow up at PCP. Hossein verbalized understanding. At discharge patient has normal mentation, declines further hospitalization on a voluntary status and meets criteria for discharge today. Discussed indications of medications, potential benefits and risks, alternatives (including no treatment) and questions were encouraged and answered. Patient encouraged to return to hospital if symptoms worsen or change and encouraged to call unit if he needs to speak to provider for questions regarding medications or care. Hossein is future oriented, looking forward to returning home and after his isolation is over, spending time with his and family. He is also looking forward to starting IOP for his PTSD, feels this will be beneficial to his mental health. Hossein hopes to eventually leave the and move to [place]. was also contacted by Lia, planner scheduler who reports that she feels that Hossein's mood has improved. Per d/c planner chief notes, Lia: educated regarding warning signs related to SI. Pt's relayed understanding and is very happy that pt is coming home. Pts feel that pt is safe for d/c. Mental Status Examination General Appearance: well groomed, appears stated age Build: average Demeanor: average, reserved Eye Contact: average Activity: average Behavior: cooperative Speech: clear, reg/rate,rhythm,volume Mood: depressed Affect: appropriate, congruent, flat Thought Process: logical/linear Thought Content (Delusions): none reported, other (denies si/hi) Thought Content (Other): none reported Thought Content (Aggressive): none reported Perception (Hallucinations): denies Perception (Other): none reported Cognition (Impairment of): none reported Cognition(Intelligence Est.): average Oriented: Awake, Alert, Oriented times three Insight: good Judgment: good Suicide Risk Assessment: 1) Does the patient wish to be ? No 2) Since your admission, have you had any actual thought of killing yourself? No 3) Since your admission, have you been thinking about how you might do this? No 4) Since your admission, have you had these thoughts and had some intention of acting on them? No 5) Since your admission, have you started to work out or worked out the details of how to kill yourself? No 5A) Do you intent to carry out this plan? NA 6) Have you ever done anything, started anything, or prepared to do anything with any intent to ? No 6A) How long since your admission did you do any of these? NA MEDICATIONS ON DISCHARGE: - lexapro 10 mg po daily - olanzapine 5 mg po qhs - trazodone 50 mg po qhs prn insomnia - propranolol 40 mg po qhs PLAN/FOLLOWUP ARRANGEMENTS: [facility] The amount of time spent in the coordination of care for this patient was approximately 30 minutes. ETOH/Disorder Med Rx ETOH/DRUG DISORDER RX: N/A Vital Signs/I&Os Vital Signs Date Time Temp Pulse Resp B/P (MAP) Pulse Ox O2 Delivery O2 Flow Rate FiO2 03/24/21 06:36 98.0 62 20 127/88 (101) 100 Room Air Medications Scheduled Escitalopram Oxalate (Lexapro) 10 Mg Tablet, 10 MG PO DAILY for mood, #7 Olanzapine (Olanzapine) 5 Mg Tablet, 5 MG PO QHS for psychosis, #7 Propranolol HCl (Propranolol HCl) 40 Mg Tablet, 40 MG PO QHS, (Reported) Allergies Coded Allergies: tuberculin, purified protein deriva (Verified Allergy, Unknown, 03/17/21) "always tests positive" ARJUN GILBERT, [facility] Mar 24, 2021 10:33
== END 2021-03-24 12:45 | disposition home or self-care (01) | DRG 885 ==
LOC: M ED 11:13 → M ED INP 18:30 → M PSY 03-18 03:57
PROVIDERS: ADMIT Psychiatry & Neurology Psychiatry; ATTEND Psychiatry & Neurology Psychiatry
DX: F33.3 Major depressive disorder, recurrent, severe with psychotic symptoms (principal); R45.851 Suicidal ideations; Z91.82 Personal history of military deployment; Z88.8 Allergy status to other drugs, medicaments and biological substances; Z79.899 Other long term (current) drug therapy

== ENCOUNTER 2021-05-08 18:00 | Emergency (ER) | payer OTHER ==
[~2021-05-08] VITALS: Ht 175.3 cm; Wt 88.6 kg
[~2021-05-08 18:00] MED LIST: BUPR-69 PO; BUPR100T3 PO; LEXA1TAB PO; MELA3TAB30 PO; OLAN1TAB16 PO; PROP40TA62 PO; PROP60CA PO
[2021-05-08 18:01] VITALS: BP 143/61
[2021-05-08 20:36] LABS: ALBUMIN 3.9 GM/DL (3.2-5.2); BILIRUBIN,DIRECT 0.1 MG/DL (0.0-0.2); BILIRUBIN,TOTAL 0.3 MG/DL (0.2-1.0)
[2021-05-08 20:38] LABS: BASO % 0.6 % (0.0-1.0); EOS # 0.2 10^3/uL (0.0-0.5); EOS % 3.3 % (0.0-3.0); HEMATOCRIT 40.8 % (42.0-52.0); HEMOGLOBIN 14.2 g/dl (13.5-17.5); LYMPH # 2.3 10^3/uL (1.5-5.0); LYMPH % 47.6 % (24.0-44.0); MEAN CORPUSCULAR HEMOGLOBIN 30.3 pg (27.0-33.0); MEAN CORPUSCULAR HGB CONC 34.8 g/dl (32.0-36.5); MEAN CORPUSCULAR VOLUME 87.2 fl (80.0-96.0); MONO # 0.3 10^3/uL (0.0-0.8); NEUTROPHILS % 41.3 % (36.0-66.0); PLATELET COUNT, AUTOMATED 249 10^3/uL (150-450); RED BLOOD COUNT 4.68 10^6/uL (4.30-6.10); WHITE BLOOD COUNT 4.9 10^3/uL (4.0-10.0)
[2021-05-08] MEDS ORDERED: GI COCKTAIL 50ML BTL(HYOSCYAMINE/MAALOX/LIDOCAINE VISCOUS)(1:3:1) PO ONE (20:45)
[2021-05-08] MEDS ORDERED: ISOVUE-370 76% 100ML VIAL As Ordered ONE (21:28)
[2021-05-08] MEDS ORDERED: LEVS0.124 SL (22:44)
[2021-05-08 23:20] LABS: GC DNA AMPLIFICATION NEGATIVE (NEGATIVE)
== END 2021-05-08 22:57 | disposition home or self-care (01) ==
LOC: M ED 18:00
DX: K80.50 Calculus of bile duct without cholangitis or cholecystitis without obstruction (principal); M48.061 Spinal stenosis, lumbar region without neurogenic claudication; M51.87 Other intervertebral disc disorders, lumbosacral region; F32.A Depression, unspecified; Z88.8 Allergy status to other drugs, medicaments and biological substances; Z79.899 Other long term (current) drug therapy
CPT/HCPCS: 36415; 74177; 80047; 80076; 81001; 83690; 85025; 87808; 87810; 87850; 99283; Q9967

== ENCOUNTER → 2021-05-22 | Outpatient (CLI) | payer OTHER ==
[~2021-05-22] MED LIST changes: +LEVS0.124 SL
== END ==
LOC: M WHC 06:59
PROVIDERS: ATTEND Surgery
DX: R10.9 Unspecified abdominal pain (principal)

== ENCOUNTER → 2021-08-13 | Outpatient (CLI) | payer OTHER ==
[~2021-08-13] MED LIST changes: +BUPR-70 PO; -BUPR100T3 PO
== END ==
LOC: M RAD 08-12 07:50
PROVIDERS: ATTEND Preventive Medicine Undersea and Hyperbaric Medicine
DX: R10.11 Right upper quadrant pain (principal)
CPT/HCPCS: 78227; A9537